=== PATIENT | male | born 1965 | race Two or more races ===

== ENCOUNTER 2018-09-22 18:53 | Inpatient (IN) | payer MEDICARE, MEDICAID ==
[~2018-09-22] VITALS: Ht 180.3 cm; Wt 94.8 kg
[~2018-09-22 18:53] MED LIST: BENZ2TAB7 PO; BRIM5DRO6 OP; FURO40TA5 PO; GLYB5TAB7 PO; HAL5 GT; HYDR-3281 PO; LACT10SO7 NG; LORA1TAB PO; METF-415 PO; TAMS-11 PO; TEMA15CA PO; TRAZ-212 PO; ZIPR20CA12 PO; lantus
[2018-09-22 22:09] LABS: BG BASE EXCESS 1.7 mmol/L (-2.0-2.0); BG FRACTION INSPIRED OXYGEN 100; BG HCO3 ACT 21.4 mmol/L (22.0-26.0); BG PCO2 22.8 mmHg (35.0-45.0); BG PH 7.591 (7.350-7.450); BG PO2 329.4 mmHg (75.0-100.0); BG SAMPLE SITE RIGHT RADIAL; BG TIDAL VOLUME(mL) 600 mL; BG VENT MODE VENT - A/C; BG VENT RATE 14 set
[2018-09-22 22:51] LABS: BASOPHILS % 0.3 % (0.0-2.0); HEMATOCRIT. 32.8 % (42.0-52.0); LYMPHOCYTES % 15.6 % (20.0-50.0); MEAN CORPUSCULAR HEMOGLOBIN 29.7 pg (28.0-32.0); MEAN CORPUSCULAR VOLUME 88.3 fL (80.0-94.0); MEAN PLATELET VOLUME 8.9 fl (7.4-10.4); NEUTROPHILS % 79.1 % (40.0-76.0); PLATELET 273 x1000/uL (130-400); RED BLOOD CELL COUNT 3.71 mill/uL (4.7-6.1); RED CELL DISTRIBUTION WIDTH 14.3 % (11.6-14.6)
[2018-09-22] MEDS ORDERED: CLINDAMYCIN 600 MG in DEXTROSE 5% WATER 50 ML IV ONE (23:00)
[2018-09-22 23:02] LABS: CHLORIDE 100 mEq/L (98-107)
[2018-09-23] VITALS (12 sets, daily range): BP systolic 89–128; BP diastolic 59–77
[2018-09-23] MEDS ORDERED: IPRATROPIUM/ALBUTEROL 0.5-3(2.5)MG/3ML NEB HHN SCH (06:00)
[2018-09-23 07:41] LABS: BG BASE EXCESS 1.9 mmol/L (-2.0-2.0); BG CARBOXYHEMOGLOBIN 0.3 % (0.5-1.5); BG DEOXYHEMOGLOBIN 0.9 % (0.0-5.0); BG METHEMOGLOBIN 0.1 % (0.0-1.5); BG OXYGEN SATURATION 99.1 % (92.0-98.5); BG OXYHEMOGLOBIN 98.7 % (94.0-97.0); BG PCO2 29.2 mmHg (35.0-45.0); BG PH 7.533 (7.350-7.450); BG PO2 190.7 mmHg (75.0-100.0); BG SAMPLE SITE RIGHT RADIAL; BG TIDAL VOLUME(mL) 500 mL; BG TOTAL HEMOGLOBIN 10.4 g/dL (12.0-18.0); BG VENT MODE VENT - A/C; BG VENT RATE 14 set
[2018-09-23] MEDS ORDERED: DOCU50LI25 PEG (08:00)
[2018-09-23] MEDS ORDERED: FAMO20TA8 PEG (08:00)
[2018-09-23] MEDS ORDERED: DEXTL PEG (08:00)
[2018-09-23] MEDS ORDERED: IPRA3AMP9 HHN ×2 (08:17)
[2018-09-23] MEDS ORDERED: LEVVL SQ (08:17)
[2018-09-23] MEDS ORDERED: LACT1CAP60 PEG (08:17)
[2018-09-23] MEDS ORDERED: THIA100T13 PEG (08:17)
[2018-09-23] MEDS ORDERED: METOCLOPRAMIDE IVP (08:17)
[2018-09-23] MEDS ORDERED: [UNRECOGNIZED DRUG - OTHER] PR (08:17)
[2018-09-23] MEDS ORDERED: ATIVAN IVP (08:17)
[2018-09-23] MEDS ORDERED: HYDRALAZINE HCL IVP (08:17)
[2018-09-23] MEDS ORDERED: METHYLPREDNISOLONE IVP (08:17)
[2018-09-23] MEDS ORDERED: LEVETIRACETAM IV (08:17)
[2018-09-23] MEDS ORDERED: LACT10SO30 PEG (08:17)
[2018-09-23] MEDS ORDERED: PROCHLORPERAZINE IVP (08:17)
[2018-09-23] MEDS ORDERED: DEXT 5%/0.45% NACL 1000ML 1,000 ML IV SCH (10:49)
[2018-09-23] MEDS ORDERED: LORAZEPAM 2MG/ML CPJ IV PRN (11:00)
[2018-09-23] MEDS ORDERED: ONDANSETRON HCL 4MG/2ML INJ IV PRN (11:00)
[2018-09-23 11:44] LABS: EOSINOPHILS % 0.6 % (0.0-5.0); HEMATOCRIT. 26.7 % (42.0-52.0); HEMOGLOBIN. 9.3 g/dL (14.0-18.0); LYMPHOCYTES % 17.9 % (20.0-50.0); MEAN CORPUSCULAR HEMOGLOBIN 30.4 pg (28.0-32.0); MEAN CORPUSCULAR VOLUME 87.2 fL (80.0-94.0); MEAN PLATELET VOLUME 8.7 fl (7.4-10.4); MONOCYTES % 4.8 % (2.0-8.0); NEUTROPHILS % 75.7 % (40.0-76.0); PLATELET 265 x1000/uL (130-400); RED BLOOD CELL COUNT 3.06 mill/uL (4.7-6.1); RED CELL DISTRIBUTION WIDTH 14.2 % (11.6-14.6)
[2018-09-23 11:55] LABS: CHLORIDE 104 mEq/L (98-107)
[2018-09-23] MEDS ORDERED: IPRATROPIUM/ALBUTEROL 0.5-3(2.5)MG/3ML NEB HHN PRN (12:15)
[2018-09-23] MEDS: ACETYLCYSTEINE 100MG/ML 10% VIAL 4ML INH SCH (14:28)
[2018-09-23] MEDS: IPRATROPIUM/ALBUTEROL 0.5-3(2.5)MG/3ML NEB HHN SCH ×2 (14:29→20:37)
[2018-09-23] MEDS ORDERED: DEXTROSE 50% WATER 50ML SYRINGE IV PRN (14:45)
[2018-09-23 16:55] LABS: CLARITY URINE CLEAR (CLEAR); COLOR URINE YELLOW (YELLOW); KETONES URINE TRACE (NEGATIVE); LEUKOCYTE ESTERASE URINE NEGATIVE (NEGATIVE); NITRITE URINE NEGATIVE (NEGATIVE); OCCULT BLOOD URINE 1+ (NEGATIVE); PH URINE >=9.0 (4.5-8.0); PROTEIN URINE 1+ (NEGATIVE); SPECIFIC GRAVITY URINE 1.015 (1.005-1.030)
[2018-09-23] MEDS: BLOOD SUGAR DIAGNOSTIC STRIP TEST SCH ×2 (17:13→23:23)
[2018-09-23] MEDS: INSULIN LISPRO 100 UNITS/ML SUBCUT SCH ×3 (17:13→23:35)
[2018-09-23] MEDS: SODIUM CHLORIDE 0.9% 1,000 ML IV SCH (18:37)
[2018-09-23 20:38] LABS: HEMATOCRIT 33.8 % (42.0-52.0); HEMOGLOBIN 11.1 g/dL (14.0-18.0)
[2018-09-23] MEDS: LEVETIRACETAM 500MG/5ML CUP PO SCH (21:10)
[2018-09-23] MEDS ORDERED: INSULIN GLARGINE UD 100 UNITS/ML SYR SUBCUT SCH (22:00)
[2018-09-24] VITALS (19 sets, daily range): BP systolic 70–120; BP diastolic 47–75
[2018-09-24] MEDS ORDERED: INSULIN LISPRO 100 UNITS/ML SUBCUT SCH
[2018-09-24] MEDS: ACETYLCYSTEINE 100MG/ML 10% VIAL 4ML INH SCH ×4 (00:20→16:07)
[2018-09-24] MEDS: IPRATROPIUM/ALBUTEROL 0.5-3(2.5)MG/3ML NEB HHN SCH ×6 (00:23→20:33)
[2018-09-24] MEDS: SODIUM CHLORIDE 0.9% 1,000 ML IV SCH ×2 (01:30→04:37)
[2018-09-24] MEDS: BLOOD SUGAR DIAGNOSTIC STRIP TEST SCH ×3 (06:00→23:35)
[2018-09-24] MEDS: INSULIN LISPRO 100 UNITS/ML SUBCUT SCH ×3 (06:06→23:32)
[2018-09-24 08:02] LABS: BASOPHILS % 0.6 % (0.0-2.0); EOSINOPHILS % 0.1 % (0.0-5.0); HEMATOCRIT. 28.5 % (42.0-52.0); HEMOGLOBIN. 9.9 g/dL (14.0-18.0); LYMPHOCYTES % 17.6 % (20.0-50.0); MEAN CORPUSCULAR HEMOGLOBIN 30.5 pg (28.0-32.0); MEAN CORPUSCULAR VOLUME 88.3 fL (80.0-94.0); MEAN PLATELET VOLUME 8.8 fl (7.4-10.4); MONOCYTES % 3.4 % (2.0-8.0); NEUTROPHILS % 78.3 % (40.0-76.0); PLATELET 249 x1000/uL (130-400); RED BLOOD CELL COUNT 3.23 mill/uL (4.7-6.1); RED CELL DISTRIBUTION WIDTH 14.2 % (11.6-14.6)
[2018-09-24] MEDS: PANTOPRAZOLE SODIUM 40 MG/VIAL IV SCH (08:22)
[2018-09-24] MEDS: LEVETIRACETAM 500MG/5ML CUP PO SCH ×2 (08:22→21:16)
[2018-09-24 08:47] LABS: CHLORIDE 105 mEq/L (98-107)
[2018-09-24] MEDS ORDERED: SODIUM CHLORIDE 0.9% 1,000 ML IV ONE (10:15)
[2018-09-24] MEDS: PIPERACILLIN/TAZ 3.375G PREMIX 50 ML IV SCH (21:20)
[2018-09-24] MEDS: ACETAMINOPHEN 650MG SUPP PR PRN (23:34)
[2018-09-24] MEDS: INSULIN GLARGINE UD 100 UNITS/ML SYR SUBCUT SCH (23:34)
[2018-09-25] VITALS (41 sets, daily range): BP systolic 62–124; BP diastolic 37–79
[2018-09-25] MEDS: ACETYLCYSTEINE 100MG/ML 10% VIAL 4ML INH SCH ×3 (00:29→15:39)
[2018-09-25] MEDS: IPRATROPIUM/ALBUTEROL 0.5-3(2.5)MG/3ML NEB HHN SCH ×5 (03:07→19:46)
[2018-09-25] MEDS: ACETAMINOPHEN 650MG SUPP PR PRN (05:12)
[2018-09-25] MEDS: PIPERACILLIN/TAZ 3.375G PREMIX 50 ML IV SCH ×3 (05:12→22:00)
[2018-09-25] MEDS: BLOOD SUGAR DIAGNOSTIC STRIP TEST SCH ×4 (06:00→23:36)
[2018-09-25] MEDS: INSULIN LISPRO 100 UNITS/ML SUBCUT SCH ×4 (06:00→23:16)
[2018-09-25] MEDS: LEVETIRACETAM 500MG/5ML CUP PO SCH ×2 (09:01→21:00)
[2018-09-25] MEDS: PANTOPRAZOLE SODIUM 40 MG/VIAL IV SCH (09:01)
[2018-09-25 09:06] LABS: BASOPHILS % 0.8 % (0.0-2.0); EOSINOPHILS % 0.5 % (0.0-5.0); HEMATOCRIT. 25.6 % (42.0-52.0); HEMOGLOBIN. 8.6 g/dL (14.0-18.0); LYMPHOCYTES % 17.7 % (20.0-50.0); MEAN CORPUSCULAR HEMOGLOBIN 30.3 pg (28.0-32.0); MEAN CORPUSCULAR VOLUME 89.6 fL (80.0-94.0); MEAN PLATELET VOLUME 8.8 fl (7.4-10.4); MONOCYTES % 2.7 % (2.0-8.0); NEUTROPHILS % 78.3 % (40.0-76.0); PLATELET 183 x1000/uL (130-400); RED BLOOD CELL COUNT 2.85 mill/uL (4.7-6.1); RED CELL DISTRIBUTION WIDTH 14.4 % (11.6-14.6)
[2018-09-25 09:30] LABS: CHLORIDE 111 mEq/L (98-107)
[2018-09-25] MEDS ORDERED: SODIUM CHLORIDE 10% FOR INH 15ML VIAL NEB INH SCH (11:00)
[2018-09-25] MEDS ORDERED: NOREPINEPHRINE 4 MG in DEXT 5% WATER 246 ML IV PRN (11:00)
[2018-09-25] MEDS: SODIUM CHLORIDE 0.9% 1,000 ML IV SCH (12:33)
[2018-09-25] MEDS ORDERED: PIPERACILLIN/TAZOBACTAM 3.375GM/50ML PREMIX IV ONE (12:45)
[2018-09-25] MEDS ORDERED: POTASSIUM CHLORIDE 20MEQ/PACKET PO SCH (14:00)
[2018-09-25 15:34] LABS: BG CARBOXYHEMOGLOBIN 0.3 % (0.5-1.5); BG DEOXYHEMOGLOBIN 1.5 % (0.0-5.0); BG FRACTION INSPIRED OXYGEN 45; BG HCO3 ACT 23.8 mmol/L (22.0-26.0); BG METHEMOGLOBIN 0.4 % (0.0-1.5); BG OXYGEN SATURATION 98.5 % (92.0-98.5); BG OXYHEMOGLOBIN 97.8 % (94.0-97.0); BG PCO2 30.6 mmHg (35.0-45.0); BG PH 7.508 (7.350-7.450); BG PO2 137.2 mmHg (75.0-100.0); BG SAMPLE SITE RIGHT RADIAL; BG TIDAL VOLUME(mL) 500 mL; BG TOTAL HEMOGLOBIN 8.5 g/dL (12.0-18.0); BG VENT MODE VENT - A/C; BG VENT RATE 10 set
[2018-09-25] MEDS ORDERED: VANCOMYCIN 1250MG in DEXTROSE 5% WATER 250ML IV SCH (16:00)
[2018-09-25 20:28] LABS: CLARITY URINE CLEAR (CLEAR); COLOR URINE DARK YELLOW (YELLOW); KETONES URINE NEGATIVE (NEGATIVE); LEUKOCYTE ESTERASE URINE 1+ (NEGATIVE); NITRITE URINE NEGATIVE (NEGATIVE); OCCULT BLOOD URINE 2+ (NEGATIVE); PROTEIN URINE 1+ (NEGATIVE); SPECIFIC GRAVITY URINE 1.022 (1.005-1.030)
[2018-09-25] MEDS: INSULIN GLARGINE UD 100 UNITS/ML SYR SUBCUT SCH (22:00)
[2018-09-26] VITALS (30 sets, daily range): BP systolic 110–139; BP diastolic 67–89
[2018-09-26] MEDS: ACETYLCYSTEINE 100MG/ML 10% VIAL 4ML INH SCH ×3 (00:28→15:16)
[2018-09-26] MEDS: IPRATROPIUM/ALBUTEROL 0.5-3(2.5)MG/3ML NEB HHN SCH ×6 (00:28→20:52)
[2018-09-26] MEDS: VANCOMYCIN 1 G PREMIX 200 ML IV SCH ×2 (01:05→09:51)
[2018-09-26] MEDS: SODIUM CHLORIDE 0.9% 1,000 ML IV SCH (05:34)
[2018-09-26] MEDS: PIPERACILLIN/TAZ 3.375G PREMIX 50 ML IV SCH ×3 (05:34→18:34)
[2018-09-26 05:47] LABS: BASOPHILS % 0.4 % (0.0-2.0); HEMATOCRIT. 23.8 % (42.0-52.0); HEMOGLOBIN. 8.1 g/dL (14.0-18.0); LYMPHOCYTES % 18.3 % (20.0-50.0); MEAN CORPUSCULAR HEMOGLOBIN 30.2 pg (28.0-32.0); MEAN CORPUSCULAR VOLUME 88.5 fL (80.0-94.0); MEAN PLATELET VOLUME 8.7 fl (7.4-10.4); MONOCYTES % 3.9 % (2.0-8.0); NEUTROPHILS % 75.4 % (40.0-76.0); PLATELET 224 x1000/uL (130-400); RED BLOOD CELL COUNT 2.69 mill/uL (4.7-6.1); RED CELL DISTRIBUTION WIDTH 14.4 % (11.6-14.6)
[2018-09-26] MEDS: BLOOD SUGAR DIAGNOSTIC STRIP TEST SCH ×4 (05:50→23:59)
[2018-09-26] MEDS: INSULIN LISPRO 100 UNITS/ML SUBCUT SCH ×3 (05:50→18:33)
[2018-09-26 05:52] LABS: CHLORIDE 110 mEq/L (98-107)
[2018-09-26 05:56] LABS: CREATINE KINASE 28 IU/L (39-308); PHOSPHORUS 2.1 mg/dL (2.5-4.9)
[2018-09-26] MEDS ORDERED: MAGNESIUM SULFATE 2 GM in DEXTROSE 5% WATER 50 ML IV SCH (07:15)
[2018-09-26] MEDS: PANTOPRAZOLE SODIUM 40 MG/VIAL IV SCH ×2 (09:51→21:40)
[2018-09-26] MEDS: LEVETIRACETAM 500MG/5ML CUP PO SCH ×2 (09:51→21:40)
[2018-09-26 10:41] LABS: BG CARBOXYHEMOGLOBIN 0.3 % (0.5-1.5); BG DEOXYHEMOGLOBIN 0.9 % (0.0-5.0); BG FRACTION INSPIRED OXYGEN 45; BG HCO3 ACT 20.8 mmol/L (22.0-26.0); BG METHEMOGLOBIN 0.1 % (0.0-1.5); BG OXYGEN SATURATION 99.1 % (92.0-98.5); BG OXYHEMOGLOBIN 98.7 % (94.0-97.0); BG PCO2 27.9 mmHg (35.0-45.0); BG PO2 177.5 mmHg (75.0-100.0); BG SAMPLE SITE RIGHT RADIAL; BG TIDAL VOLUME(mL) 500 mL; BG VENT MODE VENT - A/C; BG VENT RATE 10 set
[2018-09-26] MEDS ORDERED: SODIUM PHOS,M-BASIC-D-BASIC 15 MM in DEXT 5% WATER 245 ML IV SCH (12:00)
[2018-09-26 13:06] LABS: TOTAL IRON BINDING CAPACITY 103 ug/dL (250-450)
[2018-09-26 19:23] LABS: HEMATOCRIT 24.6 % (42.0-52.0); HEMOGLOBIN 8.2 g/dL (14.0-18.0)
[2018-09-26] MEDS: INSULIN GLARGINE UD 100 UNITS/ML SYR SUBCUT SCH (21:49)
[2018-09-27] VITALS (13 sets, daily range): BP systolic 111–125; BP diastolic 66–88
[2018-09-27] MEDS: INSULIN LISPRO 100 UNITS/ML SUBCUT SCH ×4 (00:05→18:09)
[2018-09-27] MEDS: ACETYLCYSTEINE 100MG/ML 10% VIAL 4ML INH SCH ×3 (00:23→15:42)
[2018-09-27] MEDS: IPRATROPIUM/ALBUTEROL 0.5-3(2.5)MG/3ML NEB HHN SCH ×6 (00:23→19:59)
[2018-09-27 01:53] LABS: HEMATOCRIT 25.1 % (42.0-52.0); HEMOGLOBIN 8.5 g/dL (14.0-18.0)
[2018-09-27] MEDS: PIPERACILLIN/TAZ 3.375G PREMIX 50 ML IV SCH ×3 (05:26→22:13)
[2018-09-27] MEDS: SODIUM CHLORIDE 0.9% 1,000 ML IV SCH ×3 (05:27→15:24)
[2018-09-27] MEDS: BLOOD SUGAR DIAGNOSTIC STRIP TEST SCH ×3 (05:47→17:59)
[2018-09-27 07:18] LABS: HEMATOCRIT. 21.8 % (42.0-52.0); HEMOGLOBIN. 7.5 g/dL (14.0-18.0); MEAN CORPUSCULAR HEMOGLOBIN 29.9 pg (28.0-32.0); MEAN PLATELET VOLUME 8.3 fl (7.4-10.4); PLATELET 244 x1000/uL (130-400); RED BLOOD CELL COUNT 2.51 mill/uL (4.7-6.1); RED CELL DISTRIBUTION WIDTH 14.7 % (11.6-14.6)
[2018-09-27 09:48] LABS: CHLORIDE 108 mEq/L (98-107)
[2018-09-27] MEDS: LEVETIRACETAM 500MG/5ML CUP PO SCH ×2 (09:57→22:14)
[2018-09-27] MEDS: PANTOPRAZOLE SODIUM 40 MG/VIAL IV SCH ×2 (09:57→22:13)
[2018-09-27 10:01] LABS: PHOSPHORUS 2.5 mg/dL (2.5-4.9)
[2018-09-27 11:33] LABS: PLATELET ESTIMATE NORMAL
[2018-09-27] MEDS: VANCOMYCIN 1,750 MG in DEXT 5% WATER 500 ML IV SCH (15:23)
[2018-09-27] MEDS: INSULIN GLARGINE UD 100 UNITS/ML SYR SUBCUT SCH (22:00)
[2018-09-28] VITALS (11 sets, daily range): BP systolic 97–121; BP diastolic 54–74
[2018-09-28] MEDS: IPRATROPIUM/ALBUTEROL 0.5-3(2.5)MG/3ML NEB HHN SCH ×6 (00:08→19:55)
[2018-09-28] MEDS: SODIUM CHLORIDE 0.9% 1,000 ML IV SCH ×2 (01:38→15:53)
[2018-09-28] MEDS: PIPERACILLIN/TAZ 3.375G PREMIX 50 ML IV SCH ×3 (05:47→21:43)
[2018-09-28] MEDS: VANCOMYCIN 1,750 MG in DEXT 5% WATER 500 ML IV SCH ×2 (05:48→15:51)
[2018-09-28 06:18] LABS: HEMATOCRIT. 23.5 % (42.0-52.0); HEMOGLOBIN. 7.9 g/dL (14.0-18.0); MEAN CORPUSCULAR HEMOGLOBIN 29.9 pg (28.0-32.0); MEAN CORPUSCULAR VOLUME 88.4 fL (80.0-94.0); MEAN PLATELET VOLUME 8.1 fl (7.4-10.4); PLATELET 266 x1000/uL (130-400); RED BLOOD CELL COUNT 2.66 mill/uL (4.7-6.1); RED CELL DISTRIBUTION WIDTH 14.7 % (11.6-14.6)
[2018-09-28 06:33] LABS: CHLORIDE 107 mEq/L (98-107)
[2018-09-28] MEDS: BLOOD SUGAR DIAGNOSTIC STRIP TEST SCH ×4 (06:40→17:46)
[2018-09-28] MEDS: INSULIN LISPRO 100 UNITS/ML SUBCUT SCH ×4 (06:45→17:45)
[2018-09-28] MEDS: ACETYLCYSTEINE 100MG/ML 10% VIAL 4ML INH SCH (07:57)
[2018-09-28 08:43] LABS: PLATELET ESTIMATE NORMAL
[2018-09-28] MEDS: PANTOPRAZOLE SODIUM 40 MG/VIAL IV SCH ×2 (09:22→21:43)
[2018-09-28] MEDS: LEVETIRACETAM 500MG/5ML CUP PO SCH ×2 (09:22→21:43)
[2018-09-28] MEDS: ACETAMINOPHEN 650MG SUPP PR PRN (12:39)
[2018-09-28 13:45] LABS: BG BASE EXCESS -0.6 mmol/L (-2.0-2.0); BG CARBOXYHEMOGLOBIN 0.3 % (0.5-1.5); BG FRACTION INSPIRED OXYGEN 35; BG METHEMOGLOBIN 0.3 % (0.0-1.5); BG OXYHEMOGLOBIN 97.4 % (94.0-97.0); BG PCO2 33.4 mmHg (35.0-45.0); BG PH 7.456 (7.350-7.450); BG PO2 105.8 mmHg (75.0-100.0); BG SAMPLE SITE RIGHT RADIAL; BG TIDAL VOLUME(mL) 500 mL; BG TOTAL HEMOGLOBIN 8.1 g/dL (12.0-18.0); BG VENT MODE VENT - A/C; BG VENT RATE 10 set
[2018-09-28] MEDS: SUCRALFATE 1 G/10 ML UDC PO SCH ×2 (17:45→21:43)
[2018-09-29] VITALS (30 sets, daily range): BP systolic 91–118; BP diastolic 54–63
[2018-09-29] MEDS: IPRATROPIUM/ALBUTEROL 0.5-3(2.5)MG/3ML NEB HHN SCH ×6 (00:17→20:49)
[2018-09-29] MEDS: INSULIN GLARGINE UD 100 UNITS/ML SYR SUBCUT SCH ×2 (01:43→23:18)
[2018-09-29] MEDS: INSULIN LISPRO 100 UNITS/ML SUBCUT SCH ×4 (01:43→18:00)
[2018-09-29] MEDS: VANCOMYCIN 1,750 MG in DEXT 5% WATER 500 ML IV SCH (03:10)
[2018-09-29] MEDS: BLOOD SUGAR DIAGNOSTIC STRIP TEST SCH ×4 (06:00→18:02)
[2018-09-29 06:09] LABS: HEMOGLOBIN. 7.1 g/dL (14.0-18.0); MEAN CORPUSCULAR HEMOGLOBIN 30.3 pg (28.0-32.0); MEAN CORPUSCULAR VOLUME 88.6 fL (80.0-94.0); MEAN PLATELET VOLUME 9.2 fl (7.4-10.4); PLATELET 104 x1000/uL (130-400); RED BLOOD CELL COUNT 2.35 mill/uL (4.7-6.1); RED CELL DISTRIBUTION WIDTH 14.6 % (11.6-14.6)
[2018-09-29 06:40] LABS: CHLORIDE 100 mEq/L (98-107)
[2018-09-29] MEDS: PIPERACILLIN/TAZ 3.375G PREMIX 50 ML IV SCH ×3 (06:40→21:02)
[2018-09-29 06:56] LABS: HEMATOCRIT. 20.9 % (42.0-52.0)
[2018-09-29] MEDS: SODIUM CHLORIDE 0.9% 1,000 ML IV SCH ×3 (07:02→21:02)
[2018-09-29] MEDS: SUCRALFATE 1 G/10 ML UDC PO SCH ×4 (07:48→21:02)
[2018-09-29 10:17] LABS: PLATELET ESTIMATE DECREASED
[2018-09-29] MEDS: LEVETIRACETAM 500MG/5ML CUP PO SCH ×2 (10:17→21:02)
[2018-09-29] MEDS: PANTOPRAZOLE SODIUM 40 MG/VIAL IV SCH ×2 (10:17→21:02)
[2018-09-29] MEDS ORDERED: FUROSEMIDE 20MG/2ML VIAL IVP NR (12:00)
[2018-09-29] MEDS ORDERED: ALBUMIN HUMAN 12.5GM/50ML (25%) IV SCH (13:00)
[2018-09-29] MEDS ORDERED: KCL 20MEQ/100ML PREMIX 100 ML IV NR (14:00)
[2018-09-29 20:55] LABS: HEMATOCRIT. 24.8 % (42.0-52.0); HEMOGLOBIN. 8.6 g/dL (14.0-18.0); MEAN CORPUSCULAR VOLUME 86.2 fL (80.0-94.0); MEAN PLATELET VOLUME 7.9 fl (7.4-10.4); PLATELET 271 x1000/uL (130-400); RED BLOOD CELL COUNT 2.88 mill/uL (4.7-6.1); RED CELL DISTRIBUTION WIDTH 14.5 % (11.6-14.6)
[2018-09-29 21:11] LABS: PLATELET ESTIMATE NORMAL
[2018-09-29] MEDS: VANCOMYCIN 1500MG in DEXTROSE 5% WATER 250ML IV SCH (23:19)
[2018-09-30] VITALS (11 sets, daily range): BP systolic 98–121; BP diastolic 56–72
[2018-09-30] MEDS: IPRATROPIUM/ALBUTEROL 0.5-3(2.5)MG/3ML NEB HHN SCH ×6 (01:05→20:44)
[2018-09-30] MEDS: PIPERACILLIN/TAZ 3.375G PREMIX 50 ML IV SCH ×3 (05:23→22:04)
[2018-09-30] MEDS: BLOOD SUGAR DIAGNOSTIC STRIP TEST SCH ×4 (05:23→18:33)
[2018-09-30] MEDS: INSULIN LISPRO 100 UNITS/ML SUBCUT SCH ×4 (05:23→18:42)
[2018-09-30 07:34] LABS: HEMATOCRIT. 26.5 % (42.0-52.0); HEMOGLOBIN. 9.1 g/dL (14.0-18.0); MEAN CORPUSCULAR HEMOGLOBIN 29.9 pg (28.0-32.0); MEAN PLATELET VOLUME 8.3 fl (7.4-10.4); PLATELET 291 x1000/uL (130-400); RED BLOOD CELL COUNT 3.05 mill/uL (4.7-6.1); RED CELL DISTRIBUTION WIDTH 14.7 % (11.6-14.6)
[2018-09-30 07:59] LABS: CHLORIDE 103 mEq/L (98-107)
[2018-09-30 08:12] LABS: PHOSPHORUS 2.2 mg/dL (2.5-4.9)
[2018-09-30] MEDS: LEVETIRACETAM 500MG/5ML CUP PO SCH ×2 (08:16→20:20)
[2018-09-30] MEDS: PANTOPRAZOLE SODIUM 40 MG/VIAL IV SCH ×2 (08:16→20:20)
[2018-09-30] MEDS: SUCRALFATE 1 G/10 ML UDC PO SCH ×4 (08:16→20:20)
[2018-09-30] MEDS: SODIUM CHLORIDE 0.9% 1,000 ML IV SCH (08:18)
[2018-09-30 10:08] LABS: PLATELET ESTIMATE NORMAL
[2018-09-30] MEDS: ACETAMINOPHEN 650MG SUPP PR PRN (15:22)
[2018-09-30] MEDS ORDERED: ACETAMINOPHEN 325MG TABLET PO PRN (18:15)
[2018-09-30] MEDS: VANCOMYCIN 1500MG in DEXTROSE 5% WATER 250ML IV SCH (18:41)
[2018-09-30 19:19] LABS: PHOSPHORUS 2.6 mg/dL (2.5-4.9)
[2018-09-30] MEDS ORDERED: MAGNESIUM SULFATE 2 GM in DEXTROSE 5% WATER 50 ML IV NR (20:00)
[2018-09-30] MEDS ORDERED: SODIUM PHOS,M-BASIC-D-BASIC 20 MM in DEXT 5% WATER 243.3333 ML IV NR (21:00)
[2018-10-01] VITALS (12 sets, daily range): BP systolic 101–119; BP diastolic 58–70
[2018-10-01] MEDS: INSULIN LISPRO 100 UNITS/ML SUBCUT SCH ×4 (00:30→18:11)
[2018-10-01] MEDS: INSULIN GLARGINE UD 100 UNITS/ML SYR SUBCUT SCH ×2 (00:31→22:24)
[2018-10-01] MEDS: IPRATROPIUM/ALBUTEROL 0.5-3(2.5)MG/3ML NEB HHN SCH ×6 (00:41→20:08)
[2018-10-01] MEDS: PIPERACILLIN/TAZ 3.375G PREMIX 50 ML IV SCH ×2 (05:50→14:26)
[2018-10-01] MEDS: SODIUM CHLORIDE 0.9% 1,000 ML IV SCH ×3 (05:50→20:39)
[2018-10-01] MEDS: BLOOD SUGAR DIAGNOSTIC STRIP TEST SCH ×4 (06:00→17:24)
[2018-10-01 07:59] LABS: HEMATOCRIT. 26.1 % (42.0-52.0); HEMOGLOBIN. 9.2 g/dL (14.0-18.0); MEAN CORPUSCULAR HEMOGLOBIN 30.6 pg (28.0-32.0); MEAN CORPUSCULAR VOLUME 86.3 fL (80.0-94.0); MEAN PLATELET VOLUME 8.7 fl (7.4-10.4); PLATELET 400 x1000/uL (130-400); RED BLOOD CELL COUNT 3.02 mill/uL (4.7-6.1); RED CELL DISTRIBUTION WIDTH 14.8 % (11.6-14.6)
[2018-10-01 08:37] LABS: CHLORIDE 103 mEq/L (98-107)
[2018-10-01 09:03] LABS: PLATELET ESTIMATE NORMAL
[2018-10-01] MEDS: PANTOPRAZOLE SODIUM 40 MG/VIAL IV SCH ×2 (09:51→20:38)
[2018-10-01] MEDS: SUCRALFATE 1 G/10 ML UDC PO SCH ×4 (09:51→20:38)
[2018-10-01] MEDS: LEVETIRACETAM 500MG/5ML CUP PO SCH ×2 (09:54→20:38)
[2018-10-01] MEDS: VANCOMYCIN 1500MG in DEXTROSE 5% WATER 250ML IV SCH (13:31)
[2018-10-02] VITALS (11 sets, daily range): BP systolic 109–131; BP diastolic 60–76
[2018-10-02] MEDS: IPRATROPIUM/ALBUTEROL 0.5-3(2.5)MG/3ML NEB HHN SCH ×6 (00:21→19:46)
[2018-10-02] MEDS: BLOOD SUGAR DIAGNOSTIC STRIP TEST SCH ×4 (00:34→17:55)
[2018-10-02] MEDS: INSULIN LISPRO 100 UNITS/ML SUBCUT SCH ×4 (00:34→17:56)
[2018-10-02] MEDS: VANCOMYCIN 1500MG in DEXTROSE 5% WATER 250ML IV SCH (05:41)
[2018-10-02 06:22] LABS: CHLORIDE 107 mEq/L (98-107)
[2018-10-02 07:26] LABS: HEMATOCRIT. 26.1 % (42.0-52.0); HEMOGLOBIN. 8.8 g/dL (14.0-18.0); MEAN CORPUSCULAR HEMOGLOBIN 29.4 pg (28.0-32.0); MEAN CORPUSCULAR VOLUME 87.4 fL (80.0-94.0); MEAN PLATELET VOLUME 7.8 fl (7.4-10.4); PLATELET 376 x1000/uL (130-400); RED BLOOD CELL COUNT 2.98 mill/uL (4.7-6.1); RED CELL DISTRIBUTION WIDTH 15.3 % (11.6-14.6)
[2018-10-02] MEDS: PANTOPRAZOLE SODIUM 40 MG/VIAL IV SCH (08:52)
[2018-10-02] MEDS: SUCRALFATE 1 G/10 ML UDC PO SCH ×3 (08:53→17:55)
[2018-10-02] MEDS: LEVETIRACETAM 500MG/5ML CUP PO SCH (08:53)
[2018-10-02] MEDS: SODIUM CHLORIDE 0.9% 1,000 ML IV SCH (08:53)
[2018-10-02 13:38] LABS: PLATELET ESTIMATE NORMAL
[2018-10-03] MEDS ORDERED: VANCOMYCIN 1250MG in DEXTROSE 5% WATER 250ML IV SCH (06:00)
== END 2018-10-02 20:45 | DRG 870 ==
LOC: ER 18:53 → 5EST 22:57 → EDBEDREQ 22:59 → EDBEDREQTM 22:59 → ENRESERV 23:11 → MICUNO 09-25 10:48 → MICUSO 09-26 05:10 → 5EST 09-26 14:21
PROVIDERS: ADMIT Family Medicine Adult Medicine; ATTEND Family Medicine Adult Medicine
PROC: 5A1955Z Respiratory Ventilation, Greater than 96 Consecutive Hours (ICD-10-PCS; principal; 2018-09-22)
PROC: 0B21XFZ Change Tracheostomy Device in Trachea, External Approach (ICD-10-PCS; 2018-09-22)
PROC: 05H633Z Insertion of Infusion Device into Left Subclavian Vein, Percutaneous Approach (ICD-10-PCS; 2018-09-25)
PROC: B547ZZA Ultrasonography of Left Subclavian Vein, Guidance (ICD-10-PCS; 2018-09-25)
PROC: 30233N1 Transfusion of Nonautologous Red Blood Cells into Peripheral Vein, Percutaneous Approach (ICD-10-PCS; 2018-09-29)
DX: A41.9 Sepsis, unspecified organism (principal); J96.20 Acute and chronic respiratory failure, unspecified whether with hypoxia or hypercapnia; J18.9 Pneumonia, unspecified organism; E43 Unspecified severe protein-calorie malnutrition; R57.1 Hypovolemic shock; J95.03 Malfunction of tracheostomy stoma; J44.0 Chronic obstructive pulmonary disease with (acute) lower respiratory infection; L03.90 Cellulitis, unspecified; N39.0 Urinary tract infection, site not specified; G93.1 Anoxic brain damage, not elsewhere classified; E87.1 Hypo-osmolality and hyponatremia; D64.9 Anemia, unspecified; B96.1 Klebsiella pneumoniae [K. pneumoniae] as the cause of diseases classified elsewhere; E11.9 Type 2 diabetes mellitus without complications; S10.10XA Unspecified superficial injuries of throat, initial encounter; E83.39 Other disorders of phosphorus metabolism; E87.6 Hypokalemia; X58.XXXA Exposure to other specified factors, initial encounter; E83.42 Hypomagnesemia; F15.10 Other stimulant abuse, uncomplicated; F20.9 Schizophrenia, unspecified; I10 Essential (primary) hypertension; F31.9 Bipolar disorder, unspecified; N40.0 Benign prostatic hyperplasia without lower urinary tract symptoms; F19.10 Other psychoactive substance abuse, uncomplicated; E86.0 Dehydration; Z79.4 Long term (current) use of insulin; Z68.29 Body mass index [BMI] 29.0-29.9, adult; Z79.899 Other long term (current) drug therapy; Y93.89 Activity, other specified; Y92.89 Other specified places as the place of occurrence of the external cause; Y99.8 Other external cause status; B95.7 Other staphylococcus as the cause of diseases classified elsewhere; K29.60 Other gastritis without bleeding
CPT/HCPCS: 36415; 36569; 36600; 51702; 71045; 76937; 80048; 80202; 82040; 82270; 82375; 82550; 82607; 82728; 82746; 82805; 82962; 83540; 83550; 83605; 83735; 84100; 84145; 85014; 85018; 85044; 86850; 86900; 86920; 87070; 87077; 87186; 87804; 93005; 93306; 94003; 94640; 96365; 99285; A6261; C1725; C9113; J1815; J2060; J2543; J3370; J3475; J3480; J3490; J7030; J7040; J7050; J7060; J7131; J7608; J7620; P9016; P9047; A4315